=== PATIENT | male | born 1970 | race African-American/Black ===

== ENCOUNTER → 2016-08-27 | Outpatient (CLI) | payer OTHER ==
[2016-08-27 13:34] LABS: ABSOLUTE EOSINOPHILS # (AUTO) 0.1 10^3/uL (0.0-0.6); ABSOLUTE LYMPHOCYTES (AUTO) 1.7 10^3/uL (0.5-4.7); ABSOLUTE MONOCYTES (AUTO) 0.4 10^3/uL (0.1-1.4); ABSOLUTE NEUT (AUTO) 3.4 10^3/uL (1.7-8.2); BASOPHILS % (AUTO) 0.5 % (0-2); HEMATOCRIT 43.1 % (37.9-51.0); HEMOGLOBIN 13.9 g/dL (13.5-17.0); HGB HCT DIFFERENCE -1.4; LYMPHOCYTES % (AUTO) 29.7 % (13-45); MEAN CORPUSCULAR HEMOGLOBIN 27.4 pg (27.0-33.4); MEAN CORPUSCULAR HGB CONC 32.3 g/dL (32.0-36.0); MEAN CORPUSCULAR VOLUME 85 fl (80-97); MONOCYTES % (AUTO) 7.6 % (3-13); RED BLOOD COUNT 5.06 10^6/uL (4.35-5.55); RED CELL DISTRIBUTION WIDTH 14.4 % (11.5-14.0); SEGMENTED NEUTROPHILS % (AUTO) 61.2 % (42-78); WHITE BLOOD COUNT 5.6 10^3/uL (4.0-10.5)
[2016-08-27 13:35] LABS: PARTIAL THROMBOPLASTIN TIME 26.5 SEC (23.5-35.8); PROTHROMBIN TIME 12.3 SEC (11.4-15.4)
[2016-08-27 13:54] LABS: ALANINE AMINOTRANSFERASE 40 U/L (21-72); ALBUMIN 4.3 g/dL (3.5-5.0); ALKALINE PHOSPHATASE 85 U/L (38-126); ANION GAP 9 (5-19); ASPARTATE AMINO TRANSFERASE 31 U/L (17-59); BILIRUBIN,DIRECT 0.2 mg/dL (0.0-0.4); BILIRUBIN,TOTAL 0.5 mg/dL (0.2-1.3); BLOOD UREA NITROGEN 19 mg/dL (7-20); CALCIUM 9.7 mg/dL (8.4-10.2); CARBON DIOXIDE 32 mmol/L (22-30); CHLORIDE 101 mmol/L (98-107); CREATININE RESULT 1.03 mg/dL (0.52-1.25); GLUCOSE 94 mg/dL (75-110); POTASSIUM 4.5 mmol/L (3.6-5.0); SODIUM 141.8 mmol/L (137-145); TOTAL PROTEIN 7.7 g/dL (6.3-8.2)
== END ==
LOC: OD 12:44
PROVIDERS: ATTEND Obstetrics & Gynecology
DX: R58 Hemorrhage, not elsewhere classified (principal)
CPT/HCPCS: 36415; 80053; 85025; 85610; 85730

== ENCOUNTER 2019-05-19 20:13 | Emergency (ER) | payer OTHER ==
[2019-05-19] MEDS ORDERED: ASPIRIN 81 MG TABLET, CHEWABLE PO ONE (20:35)
--- NOTE | 2019-05-19 20:36 | ER Document Report ---
ED Medical Screen (RME) - General Chief Complaint: Chest Pain Stated Complaint: CHEST PAIN Time Seen by Provider: 05/19/19 20:31 Primary Care Provider: ATIYA SOL MD [Primary Care Provider] - Follow up as needed Mode of Arrival: Ambulatory Information source: Patient Notes: Patient presents with midsternal chest discomfort. Patient states that he had a fluttering in the chest last week and then yesterday he developed constant midsternal pain. Patient states pain is primarily dull but occasionally will be sharper. Patient denies any nausea vomiting. Patient denies any cough or shortness of breath. Patient does have a history of hypertension, dyslipidemia and chronic back pain. I have greeted and performed a rapid initial assessment of this patient. A comprehensive ED assessment and evaluation of the patient, analysis of test results and completion of the medical decision making process will be conducted by additional ED providers. TRAVEL OUTSIDE OF THE [place] IN LAST 30 DAYS: No Physical Exam - Vital signs Vitals: Temp Pulse Resp BP Pulse Ox 98.4 F 82 16 150/97 H 99 05/19/19 20:23 05/19/19 20:23 05/19/19 20:23 05/19/19 20:23 05/19/19 20:23 - Respiratory Respiratory status: No respiratory distress - Cardiovascular Rhythm: Regular Heart sounds: S1 appreciated, S2 appreciated Course - Vital Signs Vital signs: Temp Pulse Resp BP Pulse Ox 98.4 F 82 16 150/97 H 99 05/19/19 20:23 05/19/19 20:23 05/19/19 20:23 05/19/19 20:23 05/19/19 20:23 Doctor's Discharge - Discharge Referrals: ATIYA SOL MD [Primary Care Provider] - Follow up as needed
--- NOTE | 2019-05-19 21:24 | ER Document Report ---
ED Cardiac - General Chief Complaint: Chest Pain Stated Complaint: CHEST PAIN Time Seen by Provider: 05/19/19 20:31 Primary Care Provider: ANETA WHITMAN MD [ACTIVE STAFF] - 05/22/19 Mode of Arrival: Ambulatory Notes: Patient is a 48-year-old male that comes emergency department for chief compl aint of chest pain that has been happening since yesterday. He states it has happened several times since yesterday, he states he will feel a sudden pain in the center of his chest under his sternum, he states this lasts for a few seconds and then goes away. He states today had an episode that felt kind of like pressure and then after a few seconds went away. He denies any current symptoms. He denies anything exacerbating or improving his symptoms. He denies any associated symptoms including nausea, vomiting, dizziness, shortness of breath. He denies cough, fever, injury. He has a history of hypertension, hyperlipidemia, chronic back pain. He states he had a stress test 3 years ago w hich was negative. He dips but does not smoke, he denies frequent alcohol or recreational drugs. TRAVEL OUTSIDE OF THE [place] IN LAST 30 DAYS: No - Related Data Allergies/Adverse Reactions: No Known Allergies Allergy (Unverified 05/19/19 20:46) Home Medications: aspirin 81 mg qday. acyclovir 800 mg qday. lisinopril 40 mg qday. trazadone 75 mg q hs. bupropion 150 mg. clonazepam 0.5 mg bid Past Medical History - General Information source: Patient - Social History Smoking Status: Never Smoker Frequency of alcohol use: None Drug Abuse: None Lives with: Family Family History: Reviewed & Not Pertinent Patient has suicidal ideation: No Patient has homicidal ideation: No - Past Medical History Cardiac Medical History: Reports: Hx Hypercholesterolemia, Hx Hypertension Musculoskeletal Medical History: Reports Hx Arthritis - Chronic back pain - Immunizations Immunizations up to date: Yes Hx Diphtheria, Pertussis, Tetanus Vaccination: Yes Review of Systems - Review of Systems Constitutional: No symptoms reported EENT: No symptoms reported Cardiovascular: See HPI Respiratory: No symptoms reported Gastrointestinal: No symptoms reported Genitourinary: No symptoms reported Male Genitourinary: No symptoms reported Musculoskeletal: No symptoms reported Skin: No symptoms reported Hematologic/Lymphatic: No symptoms reported Neurological/Psychological: No symptoms reported Physical Exam - Vital signs Vitals: Temp Pulse Resp BP Pulse Ox 98.4 F 82 16 150/97 H 99 05/19/19 20:23 05/19/19 20:23 05/19/19 20:23 05/19/19 20:23 05/19/19 20:23 - Notes Notes: GENERAL: Alert, interacts well. No acute distress. HEAD: Normocephalic, atraumatic. EYES: Pupils equal, round, and reactive to light. Extraocular movements intact. ENT: Oral mucosa moist, tongue midline. Oropharynx unremarkable. Airway patent. LUNGS: Clear to auscultation bilaterally, no wheezes, rales, or rhonchi. No respiratory distress. HEART: Regular rate and rhythm. No murmur ABDOMEN: Soft, non-tender. Non-distended. Bowel sounds present in all 4 quadrants. GENITOURINARY: Deferred EXTREMITIES: Moves all 4 extremities spontaneously. No edema, normal radial and dorsalis pedis pulses bilaterally. No cyanosis. BACK: no cervical, thoracic, lumbar midline tenderness. No saddle anesthesia, normal distal neurovascular exam. Moves all extremities in full range of motion. NEUROLOGICAL: Alert and oriented x3. Normal speech. Cranial nerves II through XII grossly intact. PSYCH: Normal affect, normal mood. SKIN: Warm, dry, normal turgor. No rashes or lesions noted. Course - Re-evaluation Re-evalutation: Patient asymptomatic during the entire time he was in the emergency department which was several hours. CBC, chemistry unremarkable, troponin negative. EKG without concerning findings, chest x-ray negative. Repeat troponin is negative. Patient's heart score is 3 (age, risk factors). He has very atypical symptoms which are very fleeting and not reproducible. I did discuss admission versus follow-up, decision was made for patient to follow- up in [address] Whitman, cardiology, he states that he will call and set up his appointment. Based on his work-up, atypical symptoms, heart score I feel this is the appropriate appropriate. I did discuss strict return precautions with patient and . They state appreciation and agreement. Stable and asymptomatic at time of discharge. - Vital Signs Vital signs: Temp Pulse Resp BP Pulse Ox 98.1 F 69 20 119/79 100 05/20/19 01:54 05/20/19 01:54 05/20/19 01:01 05/20/19 01:54 05/20/19 01:01 - Laboratory Result Diagrams: 05/19/19 21:10 05/19/19 21:10 Laboratory results interpreted by me: 05/19/19 05/19/19 21:10 21:10 RDW 14.1 H Carbon Dioxide 32 H - EKG Interpretation by Me Additional EKG results interpreted by me: EKG shows sinus rhythm at a rate of 74, QTC of 422, left axis deviation. Borderline T wave in lead III but no T wave inversions or ST segment changes in consecutive leads. Discharge - Discharge Clinical Impression: Chest pain Qualifiers: Chest pain type: unspecified Qualified Code(s): R07.9 - Chest pain, unspecified Condition: Stable Disposition: HOME, SELF-CARE Additional Instructions: Your work-up and evaluation today did not show any concerning findings. However please perform the next step, call the log washer listed on Wednesday to perform close follow-up and additional evaluation. Come back if you are worse including returned/severe worsening symptoms, difficulty breathing, passing out, vomiting, or any other concerning symptoms. Referrals: ANETA WHITMAN MD [ACTIVE STAFF] - 05/22/19
[2019-05-19 21:25] LABS: ABSOLUTE EOSINOPHILS # (AUTO) 0.1 10^3/uL (0.0-0.6); ABSOLUTE LYMPHOCYTES (AUTO) 2.1 10^3/uL (0.5-4.7); ABSOLUTE MONOCYTES (AUTO) 0.4 10^3/uL (0.1-1.4); ABSOLUTE NEUT (AUTO) 2.2 10^3/uL (1.7-8.2); BASOPHILS % (AUTO) 0.6 % (0-2); EOSINOPHILS % (AUTO) 1.6 % (0-6); HEMATOCRIT 43.2 % (37.9-51.0); HEMOGLOBIN 14.4 g/dL (13.5-17.0); LYMPHOCYTES % (AUTO) 43.8 % (13-45); MEAN CORPUSCULAR HEMOGLOBIN 27.5 pg (27.0-33.4); MEAN CORPUSCULAR HGB CONC 33.4 g/dL (32.0-36.0); MEAN CORPUSCULAR VOLUME 83 fl (80-97); MONOCYTES % (AUTO) 7.5 % (3-13); PLATELET COUNT 172 10^3/uL (150-450); RED BLOOD COUNT 5.24 10^6/uL (4.35-5.55); RED CELL DISTRIBUTION WIDTH 14.1 % (11.5-14.0); SEGMENTED NEUTROPHILS % (AUTO) 46.5 % (42-78); TOTAL CELLS COUNTED % (AUTO) 100 %; WHITE BLOOD COUNT 4.8 10^3/uL (4.0-10.5)
--- NOTE | 2019-05-19 21:38 | RADIOLOGY REPORT (SQ) ---
PA and lateral chest radiograph: 05/19/2019 8:37 PM CLINICAL EDUCATION SPECIALIST Comparison: None available Indication: 48-year old patient with chest pain. Findings: The cardiomediastinal silhouette is normal in size.No pneumothorax is seen. No acute airspace opacities are seen. No discrete pleural effusion is apparent. Bilateral nipple rings are seen. Impression: No acute airspace opacities are seen.
[2019-05-19 21:43] LABS: ALBUMIN 4.1 g/dL (3.5-5.0); ALKALINE PHOSPHATASE 90 U/L (38-126); ANION GAP 8 (5-19); ASPARTATE AMINO TRANSFERASE 24 U/L (17-59); BILIRUBIN,DIRECT 0.3 mg/dL (0.0-0.4); BILIRUBIN,TOTAL 0.4 mg/dL (0.2-1.3); BLOOD UREA NITROGEN 10 mg/dL (7-20); CALCIUM 9.6 mg/dL (8.4-10.2); CARBON DIOXIDE 32 mmol/L (22-30); CHLORIDE 101 mmol/L (98-107); GLUCOSE 102 mg/dL (75-110); TOTAL PROTEIN 7.5 g/dL (6.3-8.2)
[2019-05-19 21:54] LABS: NT PRO BNP 77 pg/mL (<125)
[2019-05-19 21:55] LABS: TROPONIN I < 0.012 ng/mL
[2019-05-20 01:55] VITALS: BP 119/79
--- NOTE | 2019-05-20 21:56 | EKG REPORT ---
SEVERITY:- OTHERWISE NORMAL ECG - SINUS RHYTHM BORDERLINE LEFT AXIS DEVIATION : Confirmed by: Danika Guerrero 20-May-2019 21:55:50
== END 2019-05-20 01:54 | disposition home or self-care (01) ==
LOC: ER 20:13
DX: R07.9 Chest pain, unspecified (principal); I10 Essential (primary) hypertension; Z79.82 Long term (current) use of aspirin; Z79.899 Other long term (current) drug therapy; Z72.0 Tobacco use
CPT/HCPCS: 36415; 71046; 80053; 83880; 84484; 85025; 93005; 93010; 99285

== ENCOUNTER → 2019-06-12 | Outpatient (CLI) | payer OTHER ==
[~2019-06-12] MED LIST: REGADENOSON INJ 0.4 MG/5 ML DISP.SYRIN IV ONE
--- NOTE | 2019-06-12 15:18 | DRAGON STRESS TEST REPORT ---
Pharmacological nuclear stress test Date: 06/12/2019 Name: Don Joaquin Date of : 1970 Age: 48 years Sex: Male Indication: Chest pain Procedure The patient presented to the stress lab. Rest images of the heart were obtained 90 minutes after injection of 14.3 mCi technetium 99m sestamibi. The patient was connected to recording system. The resting heart rate was 64 bpm and the resting blood pressure was 158/103 mmHg. The patient was subsequently injected with Lexiscan 0.4 mg IV. The patient subsequently was injected with 41.7 mCi of technetium 99m sestamibi. The patient did not complain of chest pain or pressure. Stress images of the heart were obtained 90 minutes after Cardiolite stress dose was given. Raw rest and stress images were reviewed. There is significant gut uptake. Motion correction was applied. Myocardial perfusion images show small sized, mild intensity, partially reversible defect in the inferior, inferolateral as well as inferobasal segments. There is mild inferior and inferobasal hypokinesis. Left ventricular ejection fraction is estimated at 50%. The TID ratio is 0.99. Conclusion There is no evidence of myocardial ischemia due to pharmacological stress on the EKG Myocardial perfusion images show a small sized, mild intensity, partially reversible defect in the inferior inferolateral as well as inferobasal segments. There is mild inferior and inferobasal hypokinesis Left ventricular ejection fraction is estimated at 50% The patient will be given an appointment to discuss these test results. [facility]
== END ==
LOC: RAD 07:00
PROVIDERS: ATTEND Internal Medicine
DX: R07.9 Chest pain, unspecified (principal)
CPT/HCPCS: 93017; 78452; A9500; J2785; Q9969